=== PATIENT | male | born 1985 ===

== ENCOUNTER 2018-10-06 02:36 | Emergency (ER) | payer SELFPAY ==
[2018-10-06 02:49] VITALS: BP 165/93; PULSE 102; RESP 16; TEMP 97.6; O2SAT 96
--- NOTE | 2018-10-06 02:51 | C.PDOC ---
History Of Present Illness 33 yr old male w/ hx of asthma p/w penile boil. Pt notes boil to bottom shaft of penis x3d. He notes he has tried compressing the boil but is unable to pop or express any drainage out of it. He denies any ulcer to his penis. No recent sexual activity. No dysuria, urgency or frequency. No swollen lymph nodes. No history of STDS. No fall or trauma. No rash. No perineum issues. No back pain. No penile discharge. No other complaints. Time Seen by Provider: 10/06/18 02:43 Chief Complaint (Nursing): Male Genitourinary Past Medical History Vital Signs: Last Vital Signs Temp 97.6 F 10/06/18 02:47 Pulse 102 H 10/06/18 02:47 Resp 16 10/06/18 02:47 BP 165/93 H 10/06/18 02:47 Pulse Ox 96 10/06/18 02:47 Primary Care Provider: Non [facility] Provider, - Medical History PMH: Asthma Denies: Diabetes, Hepatitis, HIV, HTN, Seizures, Sexually Transmitted Disease Family History: States: Unknown Family Hx - Social History Hx Tobacco Use: Yes Hx Alcohol Use: No Hx Substance Use: No - Immunization History Hx Tetanus Toxoid Vaccination: No Hx Influenza Vaccination: No Hx Pneumococcal Vaccination: No Review Of Systems Constitutional: Negative for: Fever, Chills, Weakness Eyes: Negative for: Pain, Vision Change, Eyelid Inflammation ENT: Negative for: Ear Pain, Ear Discharge, Nose Pain, Nose Congestion, Mouth Pain Cardiovascular: Negative for: Chest Pain, Palpitations, Edema Respiratory: Negative for: Cough, Shortness of Breath, SOB with Excertion Gastrointestinal: Negative for: Nausea, Vomiting, Abdominal Pain, Diarrhea, Constipation, Melena Genitourinary: Negative for: Dysuria, Frequency, Incontinence, Hematuria, Penile Discharge, Scrotal Pain Musculoskeletal: Negative for: Neck Pain, Shoulder Pain, Back Pain Skin: Negative for: Rash, Lesions Neurological: Negative for: Weakness, Numbness, Headache Physical Exam - Physical Exam Appears: Well, No Acute Distress Skin: Normal Color, Warm, Dry Head: Atraumatic, Normacephalic Eye(s): bilateral: Normal Inspection, PERRL, EOMI Nose: Normal Oral Mucosa: Moist Tongue: Normal Appearing Lips: Normal Appearing Teeth: Normal Dentition Gingiva: Normal Appearing Throat: Normal Neck: Normal, Normal ROM, No Midline Cervical Tenderness, No Paracervical Tenderness, Supple, Other (no meningeal signs) Lymphatic: No Adenopathy Chest: Symmetrical Cardiovascular: Rhythm Regular Respiratory: Normal Breath Sounds Gastrointestinal/Abdominal: Normal Exam, Soft, No Tenderness, No Organomegaly, No Mass, No Distention, No Guarding, No Rebound, No Hernia Back: Normal Inspection, No CVA Tenderness, No Vertebral Tenderness Male Genital: No Testicular Tenderness, No Testicular Swelling, No Inguinal Tenderness, No Inguinal Swelling, No Scrotal Swelling, No Circumcised, Other (pea shaped indurated, ~1cm mildly flcutuant, mostly inudurated abscess noted: 1/4 from base of penis. No appreciable drainable pocket noted) Extremity: Normal ROM Neurological/Psych: Oriented x3, Normal Speech, Normal Cognition ED Course And Treatment O2 Sat by Pulse Oximetry: 96 Medical Decision Making Medical Decision Makin33 year old male p/w non-drainable small pea shaped abscess to base to mid shaft of penis. No visible pocket of pus noted. No crepitus or perineum pain or erythema noted. indurated area w/ out drainable pocket. Pt denies any penile ulcer, rash or testicular pain. No involvement of scrotum in noted abscess. No back pain / CVAT or recent sexual activity. 0301 Endorsed to pt to follow up with Madhav Mcmahan regarding penile abscess Also endorsed warm compressess given return indications and f/u, clear for d/c home. Pt agreeable to plan. Disposition - Disposition Referrals: Madhav Martinez MD [Staff Provider] - [facility] [Outside] [facility] [Outside] [facility] [Outside] Disposition: HOME/ ROUTINE Disposition Time: 03:01 Condition: STABLE Additional Instructions: FOLLOW UP WITH UROLOGY, DR. REINALDO PERDOMO FOR YOU BOIL ON YOUR PENIS NILAM WEEMS, thank you for letting us take care of you today. Your provider was Carlyle Meléndez and you were treated for MALE GENITOURINARY. The emergency medical care you received today was directed at your acute symptoms. If you were prescribed any medication, please fill it and take as directed. It may take several days for your symptoms to resolve. Return to the Emergency Department if your symptoms worsen, do not improve, or if you have any other problems. Please contact your doctor or call one of the physicians/clinics you have been referred to that are listed on the Patient Visit Information form that is included in your discharge packet. Bring any paperwork you were given at dischar ge with you along with any medications you are taking to your follow up visit. Our treatment cannot replace ongoing medical care by a primary care provider outside of the emergency department. Thank you for allowing the [facility] team to be part of your care today. If you had an X-Ray or CT scan: A Radiologist will review the ED reading if any change in treatment is needed we will contact you. If you had a blood, urine, or wound culture: It will take several days for the results, if any change in treatment is needed we will contact you. If you had an STI test: It will take 48 hours for the results. Please call after 1 week if you have not heard back. Prescriptions: Clindamycin [Cleocin] 450 mg PO TID 7 Days #63 cap Instructions: Boil (DC) Forms: [employer] (Occitan) Print Language: MAORI - Clinical Impression Clinical Impression: Abscess of shaft of penis
== END 2018-10-06 03:30 | disposition home or self-care (01) ==
LOC: C.ER 02:36
DX: N48.21 Abscess of corpus cavernosum and penis (principal); Z72.0 Tobacco use